=== PATIENT | male | born 1970 ===

== ENCOUNTER 2020-04-06 14:35 | Outpatient (CLI) | payer BC, SELFPAY ==
--- NOTE | ~2020-04-06 | XR_ITS ---
EXAMINATION: XR elbow LT min 3V DATE: 04/06/2020 15:09 INDICATION: Left elbow pain. TECHNIQUE: 4 views of left elbow were obtained. COMPARISON: None. FINDINGS: Bone alignment is normal. No fracture. Joint spaces are well maintained. There is no elbow joint effusion. IMPRESSION: 1. Normal left elbow. Reviewed, dictated and finalized at location B. IMPRESSION: 1. Normal left elbow.
--- NOTE | ~2020-04-06 | XR_ITS ---
EXAMINATION: XR forearm LT 2V DATE: 04/06/2020 15:10 INDICATION: Left elbow pain. TECHNIQUE: 2 views of left forearm were obtained. COMPARISON: None. FINDINGS: Bone alignment is normal. No fracture. Joint spaces are well maintained. There is no elbow joint effusion. IMPRESSION: 1. Normal left forearm. Reviewed, dictated and finalized at location B. IMPRESSION: 1. Normal left forearm.
== END 2020-04-06 14:36 | disposition home or self-care (01) ==
LOC: ANHIMG 14:43
PROVIDERS: PCP Emergency Medicine; Visit Provider Emergency Medicine
DX: M25.522 Pain in left elbow (principal)
CPT/HCPCS: 73080; 73090